=== PATIENT | male | born 1985 | race Caucasian/White ===

== ENCOUNTER → 2019-03-30 12:22 | Outpatient (CLI) | payer BC, SELFPAY ==
[2019-03-30 13:34] LABS: Absolute Lymphocyte Count 1.76 X10^3/uL (0.83-4.51); Absolute Neutrophil Count 2.8 X10^3/uL (2.0-7.7); Basophil# 0.03 X10^3/uL; Basophil% 0.6 % (0-1); Eosinophil# 0.05 X10^3/uL; Hematocrit 47.1 % (40-54); Hemoglobin 15.6 g/dL (13.0-16.5); Lymphocyte # 1.76 X10^3/ul (4.0); Lymphocyte % 33.8 % (19-41); Mean Corp Hgb Conc 33.1 g/dL (32-36); Mean Corpuscular Hgb 29.5 pg (27.0-32.0); Mean Platelet Vol. 8.5 fl (6.2-12.0); Monocyte# 0.54 X10^3/uL; Monocyte% 10.4 % (0-10); NRBC Flagged by Analyzer 0 % (0-5); Neutrophil # 2.82 X10^3/uL (2.7-7.7); Platelet Count 296 K/mm3 (150-450); RBC Distribution Width CV 12.5 % (11.6-14.6); RBC Distribution Width SD 40.7 fl (35.1-43.9); Red Blood Count 5.29 M/mm3 (4.6-6.2); White Blood Count 5.2 K/mm3 (4.4-11.0)
[2019-03-30 13:53] LABS: Prothrombin Time (Protime)PT. 12.7 SECONDS (11.7-14.9)
[2019-03-30 13:54] LABS: Partial Thromboplast Time 30.3 Seconds (24.1-36.2)
[2019-03-30 13:58] LABS: Anion Gap 4 (5-15); BUN 15 mg/dL (7-18); BUN/Creat Ratio 17.9 RATIO (10-20); Chloride 104 mmol/L (98-107); Creatinine, Serum 0.84 mg/dL (0.70-1.30); EST Glomerular Filtration Rate 112 mL/min (>60); Est Glom Filt Rate - Afr Amer 135 mL/min (>60); Glucose 61 mg/dL (74-106); Potassium 3.9 mmol/L (3.5-5.1); Sodium Level 140 mmol/L (136-145)
== END ==
PROVIDERS: Family Provider Family Medicine; PCP Family Medicine; Referring Provider Podiatrist Foot & Ankle Surgery; Visit Provider Podiatrist Foot & Ankle Surgery
DX: Z01.818 Encounter for other preprocedural examination (principal)
CPT/HCPCS: 36415; 80048; 85025; 85610; 85730

== ENCOUNTER → 2019-07-25 13:19 | Outpatient (CLI) | payer BC, SELFPAY ==
--- NOTE | 2019-07-25 14:55 | NEURO ---
NCS and/or EMG Patient Report Ordering Doctor: Amado Mooney DATE OF SERVICE: 07/25/19 Malik Godoy is a 34 year old male who presents for electrodiagnostic testing of the lower limbs. He reports numbness and tingling in the right foot, primarily with flexion. Electrodiagnostic findings: Peroneal motor nerve demonstrates normal distal latency, amplitude and conduction velocity bilaterally. Normal tibial motor response bilaterally. Prolonged right sural latency is noted. Normal peroneal and tibial F waves. Normal H reflex bilaterally. On needle EMG, all muscles tested in the lower limb showed no evidence of denervation with normal motor unit action potentials Electrodiagnostic impression this is an abnormal study in the right lower limb 1. 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 No electrodiagnostic evidence for peripheral polyneuropathy 3. No electrodiagnostic evidence for tarsal tunnel syndrome. If there are any further questions, please do not hesitate to contact me.
== END ==
PROVIDERS: PCP Family Medicine; Referring Provider Podiatrist Foot & Ankle Surgery; Visit Provider Podiatrist Foot & Ankle Surgery
DX: G57.61 Lesion of plantar nerve, right lower limb (principal)
CPT/HCPCS: 95886; 95913

== ENCOUNTER → 2020-03-31 12:23 | Outpatient (CLI) | payer BC, SELFPAY ==
--- NOTE | 2020-03-31 12:32 | EKG12_ITS ---
Test Reason : PREOP Blood Pressure : / mmHG Vent. Rate : 078 BPM Atrial Rate : 078 BPM P-R Int : 132 ms QRS Dur : 088 ms QT Int : 350 ms P-R-T Axes : 021 077 031 degrees QTc Int : 399 ms Normal sinus rhythm Normal ECG Confirmed by ERIC WHITAKER, JUANITA ([id number]), editorial director GLADIS MAGANA ([id number]) on 04/03/2020 10:25:00 AM Referred By: Amado Mooney Confirmed By:KRISTEN REYES MD
--- NOTE | 2020-03-31 12:48 | RAD_ITS ---
STUDY: X-RAY CHEST REASON FOR EXAM: Male, 34 years old. Preoperative exam TECHNIQUE: Frontal and lateral views of the chest COMPARISON: 02/02/14 FINDINGS: The lungs are clear. There are no pleural effusions. There is no pneumothorax. The heart is normal in size. The visualized osseous structures are within normal limits. RAD/Chest PA and Lateral IMPRESSION: No acute thoracic pathology. Electronically Signed: Chris Almeida, at 22:14 EST Tel , Service support ,
[2020-03-31 13:36] LABS: Absolute Neutrophil Count 3.3 X10^3/uL (2.0-7.7); Basophil# 0.03 X10^3/uL; Basophil% 0.6 % (0-1); Eosinophil# 0.06 X10^3/uL; Eosinophils% 1.1 % (0-5); Hematocrit 48.4 % (40-54); Hemoglobin 16.1 g/dL (13.0-16.5); Lymphocyte % 29.6 % (19-41); Mean Corp Hgb Conc 33.3 g/dL (32-36); Mean Corpuscular Volume 90.3 fL (80-94); Mean Platelet Vol. 8.3 fl (6.2-12.0); Monocyte# 0.41 X10^3/uL; Monocyte% 7.6 % (0-10); NRBC Flagged by Analyzer 0 % (0-5); Neutrophil # 3.29 X10^3/uL (2.7-7.7); Neutrophil % 60.9 % (47-70); Platelet Count 291 K/mm3 (150-450); RBC Distribution Width CV 12.5 % (11.6-14.6); RBC Distribution Width SD 40.9 fl (35.1-43.9); Red Blood Count 5.36 M/mm3 (4.6-6.2); White Blood Count 5.4 K/mm3 (4.4-11.0)
[2020-03-31 13:42] LABS: International Normalized Ratio 0.9; Prothrombin Time (Protime)PT. 11.8 SECONDS (11.7-14.9)
[2020-03-31 13:43] LABS: Partial Thromboplast Time 29.1 Seconds (24.1-36.2)
[2020-03-31 14:09] LABS: Hemoglobin A1c 5.2 % (3.8-5.6)
[2020-03-31 14:12] LABS: Anion Gap 7 (5-15); BUN 10 mg/dL (7-18); BUN/Creat Ratio 10.9 RATIO (10-20); Calcium,Total 9.1 mg/dL (8.5-10.1); Chloride 101 mmol/L (98-107); Creatinine, Serum 0.91 mg/dL (0.70-1.30); EST Glomerular Filtration Rate 100 mL/min (>60); Est Glom Filt Rate - Afr Amer 121 mL/min (>60); Glucose 87 mg/dL (74-106); Potassium 3.8 mmol/L (3.5-5.1); Sodium Level 138 mmol/L (136-145)
== END ==
PROVIDERS: PCP Family Medicine; Referring Provider Podiatrist Foot & Ankle Surgery; Visit Provider Podiatrist Foot & Ankle Surgery
DX: Z11.59 Encounter for screening for other viral diseases (principal); Z01.818 Encounter for other preprocedural examination; Z01.810 Encounter for preprocedural cardiovascular examination
CPT/HCPCS: 36415; 71046; 80048; 83036; 85025; 85610; 85730; 87635; 93005; C9803; U0003

== ENCOUNTER → 2021-01-23 16:10 | Outpatient (CLI) | payer BC, SELFPAY ==
--- NOTE | 2021-01-23 16:16 | MRI_ITS ---
HISTORY: ACHILLES TENDON TEAR;LIMB LENGTH DIFFERENCE right foot Achilles pain after surgery. EXAMINATION: MR Ankle W/O Contrast TECHNIQUE: Multiplanar and multisequence MR images of the right ankle. IV Contrast dosage and agent: None COMPARISON: None FINDINGS: SOFT TISSUES: Mild retrocalcaneal bursal fluid signal. No retro-Achilles fluid collection. No subcutaneous fluid collection or air artifact. MUSCLES: Normal bulk and signal. BONE: Talar dome intact. No fracture or marrow edema. No osteochondral lesion. 2 Achilles tendon calcaneal fixation screws are present without surrounding edema. JOINT: Articular cartilage intact. No joint effusion. LIGAMENTS: Anterior and posterior tibiofibular ligament and talofibular ligaments are intact. Superficial and deep fibers deltoid ligament are intact. TENDONS: Anterior extensor tendons are normal in appearance. Medial ankle tendons are normal in appearance. Peroneus brevis partial thickness split tear, reference axial images 16, with mild anterior edema adjacent to the distal fibular tip. There is thickening and mild increased signal within the distal Achilles tendon along the distal 2.3 cm prior to calcaneal insertion MISCELLANEOUS: Plantar fascia intact. Normal fat in the sinus tarsi. MRI/Lower Ext Joint Only (Routine) IMPRESSION: 1. Distal Achilles thickening and increased signal compatible with tendinosis with trace retrocalcaneal bursal edema. Achilles calcaneal fixation screws are present. No evidence of discrete Achilles tendon tear or retraction. 2. Findings consistent with partial thickness peroneus brevis tendon split tear. at 0103 Reported and signed by: Eduardo Miranda MD Electronically Signed: Eduardo Miranda MD at 1:02 EDT Tel , Service support ,
== END ==
PROVIDERS: PCP Family Medicine; Visit Provider Podiatrist
DX: S86.011A Strain of right Achilles tendon, initial encounter (principal); X58.XXXA Exposure to other specified factors, initial encounter; Y93.9 Activity, unspecified; Y92.9 Unspecified place or not applicable; Y99.9 Unspecified external cause status
CPT/HCPCS: 73721

== ENCOUNTER → 2021-02-07 11:20 | Outpatient (CLI) | payer BC, SELFPAY ==
--- NOTE | 2021-02-07 11:31 | RAD_ITS ---
STUDY: BONE LENGTH SCANOGRAM REASON FOR EXAM: Male, 35 years old. LEG LENGTH TECHNIQUE: AP imaging of both lower extremities was obtained. COMPARISON: None. FINDINGS: No significant bone length discrepancy is seen. RAD/Bone Length IMPRESSION: No significant bone length discrepancy is seen. Electronically Signed: Elio Coleman MD at 8:44 EST , Service support ,
== END ==
PROVIDERS: PCP Physician Assistant; Visit Provider Podiatrist
DX: M21.70 Unequal limb length (acquired), unspecified site (principal); S86.011A Strain of right Achilles tendon, initial encounter
CPT/HCPCS: 77073

== ENCOUNTER → 2023-02-22 | Outpatient (CLI) | payer BC, SELFPAY ==
--- NOTE | 2023-02-22 06:38 | MRI_ITS ---
STUDY: MRI LEFT REARFOOT WITHOUT CONTRAST REASON FOR EXAM: Male, 37 years old. Plantar fasciitis with heel spur, left foot. TECHNIQUE: Standardized fat and water weighted pulse sequences were obtained in all 3 orthogonal planes. COMPARISON: None. FINDINGS: Normal subcutis adipose space. Normal posterior tibialis tendon. Normal flexor digitorum longus tendon. Normal flexor hallucis longus tendon. Normal peroneus longus and brevis tendons. Normal tibialis anterior tendon. Normal extensor hallucis longus tendon. Normal extensor digitorum longus tendons. Intact Achilles tendon and teno-osseous insertion. There is a 5 mm enthesopathic subcortical cyst at the posterior calcaneal tuberosity (sagittal STIR series 7 image 11; axial T2 series 4 images 12-13). There is mild plantar fasciitis at the origin of the plantar fascia with mild reactive subcortical marrow edema at the plantar calcaneal tuberosity (sagittal STIR series 7 images 8-9). Normal intrinsic muscles of the rearfoot. Normal distal tibiofibular syndesmotic ligamentous complex. Normal lateral ligamentous complex. Normal subtalar ligaments and sinus tarsi. Normal deltoid ligamentous complex. Normal plantar calcaneonavicular (spring) ligament. Normal tibiotalar articulation. Normal talar dome. Normal subtalar articulations. Normal talonavicular articulation. Normal calcaneocuboid articulation. Normal navicular-cuneiform articulations. MRI/Lower Ext/No Jt/w/o IMPRESSION: Mild plantar fasciitis at the origin of the plantar fascia with mild reactive subcortical marrow edema at the plantar calcaneal tuberosity. Electronically Signed: Ravindra Dugan MD at 9:47 EST ,
== END | disposition home or self-care (01) ==
PROVIDERS: PCP Internal Medicine; Referring Provider Podiatrist; Visit Provider Podiatrist
DX: M72.2 Plantar fascial fibromatosis (principal); M77.32 Calcaneal spur, left foot
CPT/HCPCS: 73718

== ENCOUNTER 2023-04-22 06:03 | Day surgery (SDC) | payer BC, SELFPAY ==
[2023-04-20 08:08] LABS: Absolute Lymphocyte Count 1.71 X10^3/uL (0.83-4.51); Absolute Neutrophil Count 2.2 X10^3/uL (2.0-7.7); Basophil# 0.03 X10^3/uL; Basophil% 0.7 % (0-1); Eosinophil# 0.08 X10^3/uL; Eosinophils% 1.7 % (0-5); Hematocrit 45.1 % (40-54); Hemoglobin 14.9 g/dL (13.0-16.5); Lymphocyte # 1.71 X10^3/ul (0.83-4.51); Lymphocyte % 37.3 % (19-41); Mean Corpuscular Hgb 29.2 pg (27.0-32.0); Mean Corpuscular Volume 88.4 fL (80-94); Mean Platelet Vol. 8.2 fl (6.2-12.0); Monocyte# 0.53 X10^3/uL; Monocyte% 11.6 % (0-10); NRBC Flagged by Analyzer 0 % (0-5); Neutrophil # 2.23 X10^3/uL (2.7-7.7); Neutrophil % 48.7 % (47-70); Platelet Count 305 K/mm3 (150-450); RBC Distribution Width CV 12.5 % (11.6-14.6); RBC Distribution Width SD 40.8 fl (35.1-43.9); White Blood Count 4.6 K/mm3 (4.4-11.0)
[2023-04-20 08:39] LABS: Anion Gap 2 (5-15); BUN 14 mg/dL (7-18); BUN/Creat Ratio 17.6 RATIO (10-20); Calcium,Total 9.6 mg/dL (8.5-10.1); Chloride 107 mmol/L (98-107); EST Glomerular Filtration Rate 116 mL/min (>60); Est Glom Filt Rate - Afr Amer 140 mL/min (>60); Glucose 93 mg/dL (74-106); Potassium 3.8 mmol/L (3.5-5.1); Sodium Level 139 mmol/L (136-145)
--- OUTSIDE RECORDS SUMMARY | 2023-04-22 06:06 | XMS RPT_ITS | CCD ---
Author Name Unknown Address [address] [place] [address] Organization [facility] Care Team Providers Care Elementary Ell Teacher Name Role Phone Jose C MARINN.SAMPLE GRADER, DNP, Dewey Primary Care Provider Suresh WHITAKER, Jermaine Faith Primary Care Provider [phone] Jermaine Nieves MD Primary Care Provider [phone] JERMAINE NIEVES Primary Care Unavailable JERMAINE NIEVES Primary Care Unavailable JERMAINE NIEVES Referring Unavailable JERMAINE NIEVES Primary Care Unavailable JERMAINE NIEVES Attending Unavailable JERMAINE NIEVES Primary Care Unavailable JERMAINE NIEVES Attending Unavailable JERMAINE NIEVES Primary Care Unavailable JERMAINE NIEVES Primary Care Unavailable Allergies Allergy Classification Reported Allergen(s) Allergy Type Date of Onset Reaction(s) Facility (10 sources) Amoxicillin; Translations: [AMOXICILLIN] Drug Allergy 01-14-2018 [facility] Work Phone: Medications Current Medications Medication Drug Class(es) Dates Sig (Normalized) Sig (Original) doxycycline monohydrate 100 mg oral tablet (1 source) Tetracycline-clas s Drug Start: 04-06-2022 End: 04-13-2022 take 1 tablet by mouth twice daily doxycycline monohydrate 100 mg tablet Indications: Bacterial sinusitis Take 1 tablet by mouth twice daily for 7 days. 14 tablet 0 04/06/2022 04/13/2022 Active Completed/Discontinued Medications Medication Drug Class(es) Dates Sig (Normalized) Sig (Original) DAILY MULTIVITAMIN TAB (9 sources) Start: 01-11-2005 DAILY MULTIVITAMIN TAB Indications: Infectious colitis, enteritis, and gastroenteritis Take one(1) tablet daily. 0 01/11/2005 Active Problems Active Problems Problem Classification Problem Date Documented Da te Episodic/Chronic Disorders of lipid metabolism (11 sources) Hyperlipidemia; Translations: [Hyperlipidemia, unspecified] Onset: 09-30-2010 09-30-2010 Chronic Headache; including migraine (9 sources) Migraine with aura; Translations: [Migraine with aura, not intractable, without status migrainosus] Onset: 07-17-2021 Chronic Hemorrhoids (1 source) Thrombosed hemorrhoids; Translations: [Perianal venous thrombosis] Episodic Other nutritional; endocrine; and metabolic disorders (9 sources) Cholesterol level - finding; Translations: [Lipoprotein deficiency] Onset: 09-30-2010 09-30-2010 Chronic Other nutritional; endocrine; and metabolic disorders (1 source) Body mass index 25-29 - overweight; Translations: [Overweight] Episodic Other screening for suspected conditions (not mental disorders or infectious disease) (4 sources) Patient encounter status; Translations: [Encounter for screening for lipoid disorders] Episodic Other skin disorders (10 sources) Male pattern alopecia; Translations: [Androgenic alopecia, unspecified] Onset: 09-30-2010 Episodic Other upper respiratory infections (1 source) Bacterial sinusitis; Translations: [Chronic sinusitis, unspecified] Chronic Past or Other Problems Problem Classification Problem Date Documented Da te Episodic/Chronic Immunizations and screening for infectious disease (3 sources) Vaccination needed; Translations: [Encounter for immunization] Onset: 07-22-2022 Episodic Other skin disorders (1 source) Androgenic alopecia, unspecified; Translations: [Male pattern baldness] Onset: 11-27-2021 Episodic Results Test Name Value Interpretation Reference Range Facil ity Vital Signs Date Time Vital Sign Value Performing Clinician Faci lity 07-22-2022 17:41-0400 Diastolic blood pressure 82 mm[Hg] Jermaine Nieves MD Work Phone: [facility] 07-22-2022 17:41-0400 Systolic blood pressure 124 mm[Hg] Jermaine Nieves MD Work Phone: [facility] 07-22-2022 17:11-0400 Body height 172.7 cm Jermaine Nieves MD Work Phone: [facility] 07-22-2022 17:11-0400 Body weight 73.94 kg Jermaine Nieves MD Work Phone: [facility] 07-22-2022 17:11-0400 Heart rate 64 /min Jermaine Nieves MD Work Phone: [facility] 07-22-2022 17:11-0400 Respiratory rate 12 /min Jermaine Nieves MD Work Phone: [facility] 07-22-2022 17:11-0400 SaO2% (BldA) [Mass fraction] 99 % Jermaine Nieves MD Work Phone: [facility] 04-06-2022 12:39-0500 Body temperature 98.2 [degF] Chauncey Jack HOME IMPROVEMENT ADVISOR.SAMPLE GRADER Work Phone: [facility] 04-06-2022 12:39-0500 Body weight 79.2 kg Chauncey Jack HOME IMPROVEMENT ADVISOR.SAMPLE GRADER Work Phone: [facility] 04-06-2022 12:39-0500 Diastolic blood pressure 76 mm[Hg] Chauncey Jack HOME IMPROVEMENT ADVISOR.SAMPLE GRADER Work Phone: [facility] 04-06-2022 12:39-0500 Heart rate 84 /min Chauncey Jack HOME IMPROVEMENT ADVISOR.SAMPLE GRADER Work Phone: [facility] 04-06-2022 12:39-0500 Respiratory rate 16 /min Chauncey Jack HOME IMPROVEMENT ADVISOR.SAMPLE GRADER Work Phone: [facility] 04-06-2022 12:39-0500 SaO2% (BldA) [Mass fraction] 99 % Chauncey Jack HOME IMPROVEMENT ADVISOR.SAMPLE GRADER Work Phone: [facility] 04-06-2022 12:39-0500 Systolic blood pressure 124 mm[Hg] Chauncey Jack HOME IMPROVEMENT ADVISOR.SAMPLE GRADER Work Phone: [facility] 01-15-2022 08:38-0400 Body weight 79.38 kg Kasandra Older HOME IMPROVEMENT ADVISOR.SAMPLE GRADER Work Phone: [facility] 01-15-2022 08:38-0400 Diastolic blood pressure 88 mm[Hg] Kasandra Older HOME IMPROVEMENT ADVISOR.SAMPLE GRADER Work Phone: [facility] 01-15-2022 08:38-0400 Heart rate 84 /min Kasandra Older HOME IMPROVEMENT ADVISOR.SAMPLE GRADER Work Phone: [facility] 01-15-2022 08:38-0400 Respiratory rate 16 /min Kasandra Older HOME IMPROVEMENT ADVISOR.SAMPLE GRADER Work Phone: [facility] 01-15-2022 08:38-0400 Systolic blood pressure 132 mm[Hg] Kasandra Older HOME IMPROVEMENT ADVISOR.SAMPLE GRADER Work Phone: [facility] 07-17-2021 12:54-0400 Body height 172.7 cm Dewey Woodall APRN.SAMPLE GRADER, DNP Work Phone: [facility] 07-17-2021 12:54-0400 Body weight 78.93 kg Dewey Woodall APRN.KODAK, DNP Work Phone: [facility] 07-17-2021 12:54-0400 Diastolic blood pressure 84 mm[Hg] Dewey Woodall HOME IMPROVEMENT ADVISOR.SAMPLE GRADER, DNP Work Phone: [facility] 07-17-2021 12:54-0400 Heart rate 86 /min Dewey Woodall APRN.SAMPLE GRADER, DNP Work Phone: [facility] 07-17-2021 12:54-0400 Respiratory rate 14 /min Dewey Woodall APRN.SAMPLE GRADER, DNP Work Phone: [facility] 07-17-2021 12:54-0400 SaO2% (BldA) [Mass fraction] 98 % Dewey Woodall APRN.SAMPLE GRADER, DNP Work Phone: [facility] 07-17-2021 12:54-0400 Systolic blood pressure 122 mm[Hg] Dewey Woodall APRN.SAMPLE GRADER, DNP Work Phone: [facility] 07-08-2021 13:55-0400 Body height 172.7 cm Justyna Hayden PA-C Work Phone: [facility] 07-08-2021 13:55-0400 Body weight 78.93 kg Justyna Hayden PA-C Work Phone: [facility] 07-08-2021 13:55-0400 Diastolic blood pressure 87 mm[Hg] Justyna Hayden PA-C Work Phone: [facility] 07-08-2021 13:55-0400 Heart rate 74 /min Justyna Hayden PA-C Work Phone: [facility] 07-08-2021 13:55-0400 Systolic blood pressure 127 mm[Hg] Justyna Hayden PA-C Work Phone: [facility] Encounters Encounter Date Encounter Type Care Provider Facility Start: 04-05-2023 End: 04-05-2023 ambulatory JERMAINE NIEVES Facility:[facility] Start: 03-30-2023 End: 03-30-2023 ambulatory JERMAINE NIEVES Facility:[facility] Start: 01-26-2023 Refill Kasandra Zendejas APRN, .CNP Work Phone: [facility] Procedures Date Procedure Procedure Detail Performing Clinician Start: 07-27-2022 Lipid 1996 panel - S camila or Plasma Mi Nurse Work Phone: Start: 07-17-2021 Adult depression screening assessment Dewey Woodall APRN.CNP, DNP Work Phone: Start: 01-16-2018 Adult depression screening assessment Justyna Hayden PA-C Work Phone: Plan of Treatment Date Care Activity Detail Author Start: 07-28-2027 Lipid 1996 panel - Serum or Plasma Lipid Screening [facility] Start: 09-06-2026 Urine microalbumin profile [facility] Start: 07-22-2026 LIPID SCREEN LIPID SCREEN [facility] Start: 12-03-2022 Covid-19 Vaccine ( season) Covid-19 Vaccine ( season) [facility] Start: 12-03-2022 Influenza vaccination Influenza Vaccine (#1) [facility] Start: 08-19-2022 HEPATITIS B (2 of 3 - 19+ 3-dose series) HEPATITIS B (2 of 3 - 19+ 3-dose series) [facility] Start: 07-23-2022 End: 09-22-2022 Comprehensive metabolic 2000 panel - Serum or Plasma COMP METABOLIC PANEL Lab Routine Routine general medical examination at health care facility Expected: 07/23/2022, Expires: 09/22/2022 [facility] Work Phone: Immunizations Immunization Date Immunization Notes Care Provider [facility] 01-24-2023 hepatitis B vaccine, adult dosage Mi Nurse Work Phone: [facility] Work Phone: 08-23-2022 hepatitis B vaccine, adult dosage Mi Nurse Work Phone: [facility] Work Phone: 07-22-2022 hepatitis B vaccine, adult dosage Jermaine Nieves MD Work Phone: [facility] Work Phone: 07-22-2022 hepatitis B vaccine, unspecified formulation Jermaine Nieves MD Work Phone: [facility] 01-13-2022 influenza, injectabl e, quadrivalent, contains preservative Kasandra Older HOME IMPROVEMENT ADVISOR.SAMPLE GRADER Work Phone: [facility] 01-13-2022 influenza virus vaccine, unspecified formulation Tx Nurse Work Phone: [facility] 02-28-2021 COVID-19 original vaccine, full dose, monovalent (MODERNA) Jermaine Nieves MD Work Phone: [facility] Work Phone: 08-07-2020 COVID-19 original vaccine, full dose, monovalent (MODERNA) Jermaine Nieves MD Work Phone: [facility] Work Phone: 07-10-2020 COVID-19 original vaccine, full dose, monovalent (MODERNA) Jermaine Nieves MD Work Phone: [facility] Work Phone: 12-19-2018 influenza, injectabl e, quadrivalent, preservative free Jermaine Nieves MD Work Phone: [facility] Work Phone: 01-28-2018 influenza, injectabl e, quadrivalent, preservative free Jermaine Nieves MD Work Phone: [facility] Work Phone: 01-28-2018 influenza, seasonal, injectable Justyna Jackelyn PA-C Work Phone: [facility] 09-06-2016 tetanus toxoid, redu lucy diphtheria toxoid, and acellular pertussis vaccine, adsorbed Justyna Jackelyn PA-C Work Phone: [facility] 02-02-2014 tetanus and diphther ia toxoids, adsorbed, preservative free, for adult use (2 Lf of tetanus toxoid and 2 Lf of diphtheria toxoid) Justyna Jackelyn PA-C Work Phone: [facility] Work Phone: 02-18-2007 influenza virus vaccine, unspecified formulation Justyna Fan TV PA-C Work Phone: [facility] Work Phone: 02-05-2005 influenza virus vaccine, unspecified formulation Justyna Jackelyn PA-C Work Phone: [facility] Work Phone: 10-01-2003 diphtheria, tetanus toxoids and acellular pertussis vaccine Justyna Jackelyn PA-C Work Phone: [facility] Payers Date Payer Category Payer Unknown [id number] 2021 Unknown [id number] 2018 Unknown [employer] PPO OOS [id number] 2018-Present [phone] [id number] [place] [address] PPO [id number] Social History Date Type Detail Facility Start: 08-30-2012 End: 01-15-2022 Tobacco smoking status NMIS Never smoked tobacco [facility] Start: 07-08-2021 End: 07-23-2022 Alcohol intake Current drinker of alcohol (finding) [facility] Start: 07-07-2021 History SDOH Alcohol Comment occasional [facility] Start: 1985 Sex Assigned At Not on file [facility] Start: 06-27-2021 End: 11-26-2021 Exposure to SARS-CoV-2 (event) Not sure [facility] Start: 07-17-2021 End: 08-23-2022 Alcohol intake [facility] Start: 07-14-2021 History SDOH Alcohol Frequency 4 [facility] Start: 07-14-2021 End: 07-19-2022 History SDOH Alcohol Std Drinks 1 [facility] Start: 07-14-2021 End: 07-19-2022 History SDOH Social Connections Phone 3 [facility] Start: 07-14-2021 End: 07-19-2022 History SDOH Social Connections Get Together 2 [facility] Start: 07-14-2021 History SDOH Social Connections Meetings 98 [facility] Start: 07-14-2021 End: 07-19-2022 History SDOH Financial 5 [facility] Start: 1985 Sex Assigned At Male [facility] Work Phone: Start: 08-30-2012 End: 01-15-2022 Tobacco use and exposure Smokeless tobacco non-user [facility] Start: 07-18-2022 End: 08-23-2022 Social connection and isolation panel [facility] Do you belong to any clubs or organizations such as mu-ism groups, unions, fraternal or athletic groups, or school groups? Yes [facility] Are you now , , , , never or living with a partner? [facility] How often to you hav e a drink containing alcohol? 2-4 times a month [facility] How many standard dr inks containing alcohol do you have on a typical day? 1 or 2 [facility] How often do you hav e 6 or more drinks on 1 occasion? Never [facility] How hard is it for y ou to pay for the very basics like food, housing, medical care, and heating Not hard at all [facility] Do you feel stress - tense, restless, nervous, or anxious, or unable to sleep at night because your mind is troubled all the time - these days [OSQ] Not at all [facility] (I/We) worried wheth er (my/our) food would run out before (I/we) got money to buy more. Never true [facility] In the past 12 month s, was there a time when you were not able to pay the mortgage or rent on time? No [facility] Start: 07-17-2021 Gender identity Identifies as male gender (finding) [facility] Work Phone: Start: 07-17-2021 Sexual orientation Heterosexual (finding) [facility] Work Phone: Clinical Notes 07-08-2021 to 04-05-2023 Telephone Encounter - Francesca Martínez HARNESS INSPECTOR - 01/26/2023 7:47 AM EDTSimi Daigle HARNESS INSPECTOR - 01/24/2023 8:59 AM EDTPatient InstructionsJermaine Nieves MD - 07/22/2022 5:20 PM EDTPatient Instructions Note Date & Type Note Facility 04-05-2023 Note HNO ID: [id number] Author: Daphnie Sánchez APRN.SAMPLE GRADER Service: ? Author Type: Nurse Practitioner Type: Progress Notes Filed: 04/05/2023 12:45 PM Note Text: Subjective Cough Associated symptoms include sore throat. Pertinent negatives include no chest pain, no chills, no ear pain, no headaches, no myalgias, no shortness of breath and no wheezing. HPI Malik Godoy is a 37 year old male who presents today for CC of cough, sore throat, and chest congestion for 3 days. He has used tylenol cold and sinus with short term relief. His children positive strep last week. Negative home covid test BP 132/84 Pulse 83 Temp 36.6 ?C (97.8 ?F) (Tympanic) Resp 16 Wt 77 kg (169 lb 12.8 oz) SpO2 100% BMI 25.82 kg/m? Social History Tobacco Use Smoking status: Never Smokeless tobacco: Never Vaping Use Vaping Use: Never used Substance Use Topics Alcohol use: Yes Alcohol/week: 1.0 standard drink of alcohol Types: 1 Cans of Beer (12oz) per week Comment: occasional Drug use: No PAST MEDICAL HISTORY Diagnosis Date Acquired Josse's deformity of right heel 2020 Hyperlipidemia LDL goal < 100 09/30/2010 Kidney stones 2-3 x in 15 years. 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 HENT: Positive for congestion, sinus pain and sore throat. Negative for ear pain. Respiratory: Positive for cough. Negative for sputum production, shortness of breath and wheezing. Cardiovascular: Negative for chest pain. Musculoskeletal: Negative for myalgias. Neurological: Negative for headaches. Objective Physical Exam Vitals and nursing note reviewed. Constitutional: Appearance: He is not toxic-appearing. HENT: Head: Normocephalic and atraumatic. Right Ear: Tympanic membrane, ear canal and external ear normal. Left Ear: Tympanic membrane, ear canal and external ear normal. Nose: No mucosal edema, congestion or rhinorrhea. Right Sinus: No maxillary sinus tenderness or frontal sinus tenderness. Left Sinus: No maxillary sinus tenderness or frontal sinus tenderness. Mouth/Throat: Pharynx: Uvula midline. No oropharyngeal exudate or posterior oropharyngeal erythema. Tonsils: No tonsillar abscesses. Cardiovascular: Rate and Rhythm: Normal rate and regular rhythm. Heart sounds: Normal heart sounds. Pulmonary: Effort: Pulmonary effort is normal. Breath sounds: Normal breath sounds. No decreased breath sounds, wheezing, rhonchi or rales. Lymphadenopathy: Head: Right side of head: No submental, submandibular, tonsillar or preauricular adenopathy. Left side of head: No submental, submandibular, tonsillar or preauricular adenopathy. Cervical: No cervical adenopathy. Right cervical: No superficial cervical adenopathy. Left cervical: No superficial cervical adenopathy. Skin: General: Skin is warm and dry. Neurological: Mental Status: He is alert and oriented to person, place, and time. Psychiatric: Mood and Affect: Affect normal. ASSESSMENT/PLAN: 1. URI with cough and congestion - ICD9: 465.9, ICD10: J06.9 (primary diagnosis) - Discussed viral etiology and rationale for treatment. - Symptomatic treatment with prn analgesia - Supportive care with fluids and rest Tesslon rajani prn Mucinex DM Declined covid testing 2. Sore throat - ICD9: 462, ICD10: J02.9 - suspect viral - Group A strep molecular testing negative - Discussed supportive care treatment with fluids, rest and analgesia. - The patient may also use warm salt water gargles, throat lozenges and/or OTC throat spray as needed. - The patient should follow up in one week if symptoms persist or worsen - Call back if drooling, increased temperature, symptoms of dehydration and/or still sick in one week Diagnosis and treatment plan were discussed and questions were answered to the patient's satisfaction. Pt acknowledged understanding of concepts and follow up plan. Specific signs and symptoms that would indicate the need for higher level of care were discussed in detail warranting prompt ER evaluation. Daphnie Sánchez APRN.[facility] 03-30-2023 Note HNO ID: [id number] Author: Jermaine Nieves MD Service: ? Author Type: Physician Type: Progress Notes Filed: 03/30/2023 9:52 AM Note Text: This note was created using Azendoo. Subjective Consultation requested by Dr. Head for an opinion regarding preoperative examination. My final recommendations will be communicated back to the requesting physician by way of shared Medical record or letter to requesting physician via US mail. Malik Godoy is a 37 year old male scheduled April 22, 2023 for left foot plantar fasciectomy, resection of infracalcaneal spur under general anesthesia. He was in good health, and had no history of bleeding tendencies or adverse effects from general anesthesia. He also mentioned symptoms of finger pallor and numbness during cold weather, resolving with warming for a few haider. Another concern brought up was upcoming travel for work; to [facility] 04/11-04/16 and [facility] 05/23-05/28. He was not aware of any vaccination requirements. [place] urban areas, and was aware about measures to avoid food borne illness. Review of Systems Constitutional: Negative for fatigue, fever and unexpected weight change. HENT: Negative. Respiratory: Negative for cough and shortness of breath. Cardiovascular: Negative for chest pain, palpitations and leg swelling. Gastrointestinal: Negative for diarrhea, nausea and vomiting. Genitourinary: Negative for dysuria. Skin: Negative for wound. Neurological: Negative for dizziness and headaches. Hematological: Does not bruise/bleed easily. PAST MEDICAL HISTORY Diagnosis Date Acquired Josse's deformity of right heel 2020 Hyperlipidemia LDL goal < 100 09/30/2010 Kidney stones 2-3 x in 15 years. 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 Migraine with aura, not intractable, without status migrainosus 07/17/2021 PAST SURGICAL HISTORY Procedure Laterality Date PAST SURGICAL HISTORY OF Right 2021 x3 achilles surgies for bone spur, Right RPR 1ST INGUN HRNA AGE 5 YRS/> REDUCIBLE 1990 Social History Tobacco Use Smoking status: Never Smokeless tobacco: Never Vaping Use Vaping Use: Never used Substance Use Topics Alcohol use: Yes Alcohol/week: 1.0 standard drink of alcohol Types: 1 Cans of Beer (12oz) per week Comment: occasional Drug use: No ALLERGIES Allergen Reactions Amoxicillin Rash Current Outpatient Medications Medication Sig minoxidil (LONITEN) 2.5 mg tablet Take 1 tablet by mouth once daily. fexofenadine HCl (MUCINEX ALLERGY ORAL) Take by mouth. fluticasone (FLONASE) 50 mcg/actuation nasal spray Use 2 Sprays in each nostril once daily. Rinse mouth after use. fexofenadine/pseudoephedrine (JYOTI-D 24 HOUR ORAL) Take by mouth. DAILY MULTIVITAMIN TAB Take one(1) tablet daily. No current facility-administered medications for this visit. Objective BP 112/82 Pulse 68 Resp 16 Wt 76.9 kg (169 lb 8 oz) SpO2 97% BMI 25.77 kg/m? Physical Exam Constitutional: Appearance: Normal appearance. Eyes: Conjunctiva/sclera: Conjunctivae normal. Cardiovascular: Rate and Rhythm: Normal rate and regular rhythm. Pulses: Normal pulses. Heart sounds: No murmur heard. No gallop. Pulmonary: Breath sounds: Normal breath sounds. Abdominal: General: There is no distension. Tenderness: There is no abdominal tenderness. Musculoskeletal: Right lower leg: No edema. Left lower leg: No edema. Neurological: General: No focal deficit present. Mental Status: He is alert. Assessment and Plan 1. Preoperative examination - ICD9: V72.84, ICD10: Z01.818 (primary diagnosis) Low risk. Proceed with surgery. 2. Travel advice encounter - ICD9: V65.49, ICD10: Z71.84 We reviewed his immunizations. CDC guidelines reviewed. Precautions for food borne illness reviewed. 3. History of Raynaud's syndrome - ICD9: V12.59, ICD10: Z86.79 Avoidance of triggers only. Jermaine Nieves MD [facility] 01-26-2023 Miscellaneous Notes Patient has been identified by name and date of : Yes, Provider Dr. Nieves Date 04/28/22 Time 7:47 am Patient phones for refill(s): Requested Prescriptions Pending Prescriptions Disp Refills minoxidil (LONITEN) 2.5 mg tablet 90 tablet 3 Sig: Take 1 tablet by mouth once daily. Date of last office visit in primary care: 07/22/2022 Date of next office visit in primary care: Visit date not found Last 2 Encounter Wt Readings: Date: Wt: 07/22/2022 73.9 kg (163 lb) 04/06/2022 79.2 kg (174 lb 9.6 oz) Previous labs/tests for medication: Not applicable Thank you. Francesca Martínez LPN. documented in this encounter [facility] 01-24-2023 Note HNO ID: [id number] Author: Simi Daigle LPN Service: ? Author Type: ? Type: Progress Notes Filed: 01/24/2023 8:59 AM Note Text: Patient presents for Hepatitis B vaccine. Denies any problems at this time. Tolerated injection well. Simi Daigle LPN [facility] 01-24-2023 History of Presen t illness Narrative Patient presents for Hepatitis B vaccine. Denies any problems at this time. Tolerated injection well. Simi Daigle LPN documented in this encounter [facility] 08-23-2022 Note HNO ID: [id number] Author: Simi Daigle LPN Service: ? Author Type: ? Type: Progress Notes Filed: 08/23/2022 9:02 AM Note Text: Patient presents for Hepatitis B vaccine. Denies any problems at this time. Tolerated injection well. Simi Daigle ROMIE [facility] 07-22-2022 Note HNO ID: [id number] Author: Jermaine Nieves MD Service: ? Author Type: Physician Type: Progress Notes Filed: 07/23/2022 9:18 AM Note Text: This note was created using NoteWriter. Subjective Patient presents with: Physical Malik Godoy is a 37 year old male. He was doing well in general. He regularly ran, but had issues with his right heel requiring surgeries. He was starting to run again after a hiatus. His alopecia was stable on oral medication. He had no side effects. Review of Systems Constitutional: Negative for activity change, fatigue and unexpected weight change. HENT: Negative. Eyes: Negative. Respiratory: Negative for cough, chest tightness and shortness of breath. Cardiovascular: Negative for chest pain, palpitations and leg swelling. Gastrointestinal: Negative for abdominal pain, constipation and diarrhea. Genitourinary: Negative for difficulty urinating and dysuria. Musculoskeletal: Negative for arthralgias. Neurological: Negative for dizziness and headaches. Psychiatric/Behavioral: Negative. PAST MEDICAL HISTORY Diagnosis Date Acquired Josse's deformity of right heel 2020 Hyperlipidemia LDL goal < 100 09/30/2010 Kidney stones 2-3 x in 15 years. 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 Migraine with aura, not intractable, without status migrainosus 07/17/2021 PAST SURGICAL HISTORY Procedure Laterality Date PAST SURGICAL HISTORY OF Right 2021 x3 achilles surgies for bone spur, Right RPR 1ST INGUN HRNA AGE 5 YRS/> REDUCIBLE 1990 FAMILY HISTORY Problem Relation Age of Onset No Known Problems Mother Hypertension Father No Known Problems Sister Arthritis Maternal Grandmother Hearing Loss Maternal Grandmother Hearing Loss Maternal Grandfather Prostate Cancer Maternal Grandfather Stroke Maternal Grandfather Arthritis Paternal Grandmother Hearing Loss Paternal Grandmother Cancer Paternal Grandfather PANCREATIC Hearing Loss Paternal Grandfather Diabetes Maternal Aunt Cancer Paternal Aunt OVARIAN No Known Problems Son No Known Problems Daughter Social History Tobacco Use Smoking status: Never Smokeless tobacco: Never Vaping Use Vaping Use: Never used Substance Use Topics Alcohol use: Yes Alcohol/week: 1.0 standard drink Types: 1 Cans of Beer (12oz) per week Comment: occasional Drug use: No Immunization History Administered Date(s) Administered COVID-19 original vaccine, full dose, monovalent (MODERNA) 07/10/2020 08/07/2020 02/28/2021 COVID-19 vaccine, age 12+ yr, bivalent (MODERNA) 12/10/2021 TD Adult 02/02/2014 diphtheria tetanus pertussis (DTaP) vaccine, pediatric (INFANRIX) 10/01/2003 hepatitis B (HepB) vaccine, 3-dose series, age 20+ yr (ENGERIX-B, RECOMBIVAX HB) 07/22/2022 influenza (IIV3) vaccine, age 3+ yr, trivalent (AFLURIA, FLULAVAL, FLUVIRIN, FLUZONE) 01/28/2018 influenza (IIV4) vaccine, age 6 mo - 64 yr, quadrivalent (AFLURIA, FLULAVAL, FLUZONE) 01/13/2022 influenza (IIV4) vaccine, age 6 mo - 64 yr, quadrivalent, PF (AFLURIA, FLUARIX, FLULAVAL, FLUZONE) 01/28/2018 12/19/2018 influenza vaccine, unspecified formulation 02/05/2005 02/18/2007 tetanus diphtheria pertussis (Tdap) vaccine, age 7+ yr (ADACEL, BOOSTRIX) 09/06/2016 ALLERGIES Allergen Reactions Amoxicillin Rash Current Outpatient Medications Medication Sig fexofenadine HCl (MUCINEX ALLERGY ORAL) Take by mouth. fluticasone (FLONASE) 50 mcg/actuation nasal spray Use 2 Sprays in each nostril once daily. Rinse mouth after use. minoxidil (LONITEN) 2.5 mg tablet Take 1 tablet by mouth once daily. fexofenadine/pseudoephedrine (JYOTI-D 24 HOUR ORAL) Take by mouth. DAILY MULTIVITAMIN TAB Take one(1) tablet daily. No current facility-administered medications for this visit. Objective BP 124/82 (BP Site: Left Arm, BP Position: Sitting) Pulse 64 Resp 12 Ht 172.7 cm (5' 8 ) Wt 73.9 kg (163 lb) SpO2 99% BMI 24.78 kg/m? Physical Exam Constitutional: General: He is not in acute distress. HENT: Head: Normocephalic. Comments: Hair thinner on top than on the sides of the head. No patchy alopecia. Eyes: Extraocular Movements: Extraocular movements intact. Conjunctiva/sclera: Conjunctivae normal. Cardiovascular: Rate and Rhythm: Normal rate and regular rhythm. Heart sounds: No murmur heard. No gallop. Pulmonary: Effort: Pulmonary effort is normal. Breath sounds: Normal breath sounds. Abdominal: Palpations: Abdomen is soft. Tenderness: There is no abdominal tenderness. Musculoskeletal: General: Normal range of motion. Cervical back: Neck supple. Right lower leg: No edema. Left lower leg: No edema. Lymphadenopathy: Cervical: No cervical adenopathy. Skin: General: Skin is warm and dry. Findings: No rash. Neurological: Mental Status: He is alert. Gait: Gait normal. Psychiatric: Mood and Affect: Mood normal. Assessment and Plan 1. Routine general medic (more content not included)... [facility] 07-22-2022 Instructions Jermaine Nieves MD - 07/22/2022 5:42 PM EDT Fasting blood work any time soon. Hepatitis B series. documented in this encounter [facility] 07-22-2022 History of Presen t illness Narrative This note was created using Azendoo. Subjective Patient presents with: Physical Malik Godoy is a 37 year old male. He was doing well in general. He regularly ran, but had issues with his right heel requiring surgeries. He was starting to run again after a hiatus. His alopecia was stable on oral medication. He had no side effects. Review of Systems Constitutional: Negative for activity change, fatigue and unexpected weight change. HENT: Negative. Eyes: Negative. Respiratory: Negative for cough, chest tightness and shortness of breath. Cardiovascular: Negative for chest pain, palpitations and leg swelling. Gastrointestinal: Negative for abdominal pain, constipation and diarrhea. Genitourinary: Negative for difficulty urinating and dysuria. Musculoskeletal: Negative for arthralgias. Neurological: Negative for dizziness and headaches. Psychiatric/Behavioral: Negative. PAST MEDICAL HISTORY Diagnosis Date Acquired Josse's deformity of right heel 2021 Hyperlipidemia LDL goal < 100 09/30/2010 Kidney stones 2-3 x in 15 years. 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 Migraine with aura, not intractable, without status migrainosus 07/17/2021 PAST SURGICAL HISTORY Procedure Laterality Date PAST SURGICAL HISTORY OF Right 2021 x3 achilles surgies for bone spur, Right RPR 1ST INGUN HRNA AGE 5 YRS/> REDUCIBLE 1990 FAMILY HISTORY Problem Relation Age of Onset No Known Problems Mother Hypertension Father No Known Problems Sister Arthritis Maternal Grandmother Hearing Loss Maternal Grandmother Hearing Loss Maternal Grandfather Prostate Cancer Maternal Grandfather Stroke Maternal Grandfather Arthritis Paternal Grandmother Hearing Loss Paternal Grandmother Cancer Paternal Grandfather PANCREATIC Hearing Loss Paternal Grandfather Diabetes Maternal Aunt Cancer Paternal Aunt OVARIAN No Known Problems Son No Known Problems Daughter Social History Tobacco Use Smoking status: Never Smokeless tobacco: Never Vaping Use Vaping Use: Never used Substance Use Topics Alcohol use: Yes Alcohol/week: 1.0 standard drink Types: 1 Cans of Beer (12oz) per week Comment: occasional Drug use: No Immunization History Administered Date(s) Administered COVID-19 original vaccine, full dose, monovalent (MODERNA) 07/10/2020 08/07/2020 02/28/2021 COVID-19 vaccine, age 12+ yr, bivalent (MODERNA) 12/10/2021 TD Adult 02/02/2014 diphtheria tetanus pertussis (DTaP) vaccine, pediatric (INFANRIX) 10/01/2003 hepatitis B (HepB) vaccine, 3-dose series, age 20+ yr (ENGERIX-B, RECOMBIVAX HB) 07/22/2022 influenza (IIV3) vaccine, age 3+ yr, trivalent (AFLURIA, FLULAVAL, FLUVIRIN, FLUZONE) 01/28/2018 influenza (IIV4) vaccine, age 6 mo - 64 yr, quadrivalent (AFLURIA, FLULAVAL, FLUZONE) 01/13/2022 influenza (IIV4) vaccine, age 6 mo - 64 yr, quadrivalent, PF (AFLURIA, FLUARIX, FLULAVAL, FLUZONE) 01/28/2018 12/19/2018 influenza vaccine, unspecified formulation 02/05/2005 02/18/2007 tetanus diphtheria pertussis (Tdap) vaccine, age 7+ yr (ADACEL, BOOSTRIX) 09/06/2016 ALLERGIES Allergen Reactions Amoxicillin Rash Current Outpatient Medications Medication Sig fexofenadine HCl (MUCINEX ALLERGY ORAL) Take by mouth. fluticasone (FLONASE) 50 mcg/actuation nasal spray Use 2 Sprays in each nostril once daily. Rinse mouth after use. minoxidil (LONITEN) 2.5 mg tablet Take 1 tablet by mouth once daily. fexofenadine/pseudoephedrine (JYOTI-D 24 HOUR ORAL) Take by mouth. DAILY MULTIVITAMIN TAB Take one(1) tablet daily. No current facility-administered medications for this visit. Objective BP 124/82 (BP Site: Left Arm, BP Position: Sitting) Pulse 64 Resp 12 Ht 172.7 cm (5' 8 ) Wt 73.9 kg (163 lb) SpO2 99% BMI 24.78 kg/m Physical Exam Constitutional: General: He is not in acute distress. HENT: Head: Normocephalic. Comments: Hair thinner on top than on the sides of the head. No patchy alopecia. Eyes: Extraocular Movements: Extraocular movements intact. Conjunctiva/sclera: Conjunctivae normal. Cardiovascular: Rate and Rhythm: Normal rate and regular rhythm. Heart sounds: No murmur heard. No gallop. Pulmonary: Effort: Pulmonary effort is normal. Breath sounds: Normal breath sounds. Abdominal: Palpations: Abdomen is soft. Tenderness: There is no abdominal tenderness. Musculoskeletal: General: Normal range of motion. Cervical back: Neck supple. Right lower leg: No edema. Left lower leg: No edema. Lymphadenopathy: Cervical: No cervical adenopathy. Skin: General: Skin is warm and dry. Findings: No rash. Neurological: Mental Status: He is alert. Gait: Gait normal. Psychiatric: Mood and Affect: Mood normal. Assessment and Plan 1. Routine general medical examination at health care facility - ICD9: V70.0, ICD10: Z00.00 (primary diagnosis) - Counseled on healthy diet and regular exercise - Depression screening tool completed and reviewed with patient. Based on score and interview, patient is not at risk for depression and recommended no further intervention at this time. - Patient was counseled [id number] by myself (the billing provider) for the following immunizations and vaccine components, including side effects: Hep B Vaccine. Patient consents for immunization and understands risks and benefits. A VIS sheet on each immunization was given to the patient. - COMP METABOLIC PANEL - LIPID PANEL BASIC 2. Male pattern baldness - ICD9: 704.09, ICD10: L64.9 Stable on oral medication. 3. Hyperlipidemia with target low density lipoprotein (LDL) cholesterol less than 100 mg/dL - ICD9: 272.4, ICD10: E78.5 - to be determined upon return of lab results - Encouraged following a low carbohydrate, healthy oil intake diet. 4. Need for vaccination - ICD9: V05.9, ICD10: Z23 - HEP B VACCINE, 3-DOSE, AGE 20+ YR (ENGERIX-B, RECOMBIVAX HB) Jermaine Nieves MD documented in this encounter [facility] 04-06-2022 History of Presen t illness Narrative Subjective HPI HPI Malik Godoy is a 36 year old male who presents today for CC of sinus pressure, drainage, cough, ear pain. This started 12 days ago. Has tried otc medication for relief. Symptoms are worsened by nothing. Risk factors hx of sinus infections. .Patient presents with: Ear Problem: Pt reported intermittent nasal congestion, cough bilateral ear pain rated 4. PAST MEDICAL HISTORY Diagnosis Date Hyperlipidemia LDL goal < 100 09/30/2010 Kidney stones 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 Migraine with aura, not intractable, without status migrainosus 07/17/2021 PAST SURGICAL HISTORY Procedure Laterality Date PAST SURGICAL HISTORY OF Right x3 achilles surgies for bone spur RPR 1ST INGUN HRNA AGE 5 YRS/> REDUCIBLE ALLERGIES Amoxicillin MEDICATIONS fexofenadine HCl (MUCINEX ALLERGY ORAL) Take by mouth. minoxidil (LONITEN) 2.5 mg tablet Take 1 tablet by mouth once daily. fexofenadine/pseudoephedrine (JYOTI-D 24 HOUR ORAL) Take by mouth. DAILY MULTIVITAMIN TAB Take one(1) tablet daily. doxycycline monohydrate 100 mg tablet Take 1 tablet by mouth twice daily for 7 days. fluticasone (FLONASE) 50 mcg/actuation nasal spray Use 2 Sprays in each nostril once daily. Rinse mouth after use. FAMILY HISTORY Problem Relation Age of Onset No Known Problems Mother Hypertension Father No Known Problems Sister Arthritis Maternal Grandmother Hearing Loss Maternal Grandmother Hearing Loss Maternal Grandfather Prostate Cancer Maternal Grandfather Stroke Maternal Grandfather Arthritis Paternal Grandmother Hearing Loss Paternal Grandmother Cancer Paternal Grandfather PANCREATIC Hearing Loss Paternal Grandfather Diabetes Maternal Aunt Cancer Paternal Aunt OVARIAN No Known Problems Son No Known Problems Daughter Social History Tobacco Use Smoking status: Never Smokeless tobacco: Never Vaping Use Vaping Use: Never used Substance Use Topics Alcohol use: Yes Alcohol/week: 1.0 standard drink Types: 1 Cans of Beer (12oz) per week Comment: occasional Drug use: No Review of Systems Constitutional: Negative for fever. HENT: Positive for congestion, ear pain and sinus pain. Negative for ear discharge, nosebleeds and sore throat. Respiratory: Positive for cough. Negative for shortness of breath and wheezing. Musculoskeletal: Negative for neck pain. Skin: Negative for itching and rash. Objective Blood pressure 124/76, pulse 84, temperature 36.8 C (98.2 F), temperature source Tympanic, resp. rate 16, weight 79.2 kg (174 lb 9.6 oz), SpO2 99 %. Physical Exam Constitutional: General: He is not in acute distress. Appearance: He is not toxic-appearing or diaphoretic. HENT: Head: Normocephalic and atraumatic. Right Ear: Hearing, ear canal and external ear normal. A middle ear effusion is present. Left Ear: Hearing, ear canal and external ear normal. A middle ear effusion is present. Nose: Nose normal. Mouth/Throat: Pharynx: Uvula midline. No pharyngeal swelling, oropharyngeal exudate, posterior oropharyngeal erythema or uvula swelling. Eyes: General: Lids are normal. No scleral icterus. Right eye: No discharge. Left eye: No discharge. Conjunctiva/sclera: Conjunctivae normal. Pupils: Pupils are equal, round, and reactive to light. Neck: Trachea: Trachea normal. Cardiovascular: Rate and Rhythm: Normal rate and regular rhythm. Heart sounds: Normal heart sounds. Pulmonary: Effort: Pulmonary effort is normal. Breath sounds: Normal breath sounds. Musculoskeletal: Cervical back: Normal range of motion and neck supple. Lymphadenopathy: Cervical: No cervical adenopathy. Right cervical: No superficial cervical adenopathy. Left cervical: No superficial cervical adenopathy. Skin: Findings: No rash. Neurological: Mental Status: He is alert and oriented to person, place, and time. ASSESSMENT/PLAN: 1. Bacterial sinusitis - ICD9: 473.9, 041.9, ICD10: J32.9, B96.89 - Will begin treatment with as per antibiotic as written, see orders - Supportive care with plenty of fluids, rest, and analgesia prn. - Follow up in 3-5 days if symptoms persist or worsen. - DOXYCYCLINE MONOHYDRATE 100 MG TABLET - FLUTICASONE PROPIONATE 50 MCG/ACTUATION NASAL SPRAY,SUSPENSION Chauncey Santiago APRN.[employer]AMPLE [employer]ADER documented in this encounter [facility] 01-15-2022 History of Presen t illness Narrative CC: Patient presents with: Follow Up: Male pattern baldness HPI Malik Godoy is a 36 year old male who presents today for above. He had virtual visit with PCP in November. Had requested oral Minoxidil for male pattern baldness. He did not want topical treatment and had tried Propecia in the past but stopped due to side effects. He was started on low dose oral Minoxidil. Patient reports no noticeable amount of hair growth however he has only been taking for 6 weeks. He denies chest pain, palpitations, fast heart rate, SOB, edema, PND, orthopnea, dizziness, lightheadedness, feeling faint or syncope REVIEW OF SYSTEMS See HPI PAST MEDICAL HISTORY Diagnosis Date Hyperlipidemia LDL goal < 100 09/30/2010 Kidney stones 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 Migraine with aura, not intractable, without status migrainosus 07/17/2021 PAST SURGICAL HISTORY Procedure Laterality Date PAST SURGICAL HISTORY OF Right x3 achilles surgies for bone spur RPR 1ST INGUN HRNA AGE 5 YRS/> REDUCIBLE ALLERGIES Amoxicillin MEDICATIONS fexofenadine/pseudoephedrine (JYOTI-D 24 HOUR ORAL) Take by mouth. minoxidil (LONITEN) 2.5 mg tablet Take 1 tablet by mouth once daily. DAILY MULTIVITAMIN TAB Take one(1) tablet daily. FAMILY HISTORY Problem Relation Age of Onset No Known Problems Mother Hypertension Father No Known Problems Sister Arthritis Maternal Grandmother Hearing Loss Maternal Grandmother Hearing Loss Maternal Grandfather Prostate Cancer Maternal Grandfather Stroke Maternal Grandfather Arthritis Paternal Grandmother Hearing Loss Paternal Grandmother Cancer Paternal Grandfather PANCREATIC Hearing Loss Paternal Grandfather Diabetes Maternal Aunt Cancer Paternal Aunt OVARIAN No Known Problems Son No Known Problems Daughter Social History Tobacco Use Smoking status: Never Smokeless tobacco: Never Vaping Use Vaping Use: Never used Substance Use Topics Alcohol use: Yes Alcohol/week: 1.0 standard drink Types: 1 Cans of Beer (12oz) per week Comment: occasional Drug use: No PHYSICAL EXAM BP 132/88 Pulse 84 Resp 16 Wt 79.4 kg (175 lb) BMI 26.61 kg/m General Appearance: well appearing, in no acute distress, alert Lungs: Lungs clear to auscultation. No wheezing, rhonchi, rales. Heart: RRR without murmur, gallop, or rubs. No ectopy ASSESSMENT/PLAN: 1. Male pattern baldness - ICD9: 704.09, ICD10: L64.9 (primary diagnosis) No side effects from Minoxidil. EKG in office today normal sinus rhythm. Check CBC. Follow-up to be determined based on results. Needs refill soon, will defer to PCP for refills 2. Medication monitoring encounter - ICD9: V58.83, ICD10: Z51.81 As above - CBC + DIFF - ECG COMPLETE Prescription instructions reviewed with patient as applicable. Potential red flag symptoms discussed with the patient. Reviewed appropriate action plan to take if red flag symptoms occur. Patient agreeable to treatment plan. Kasandra Zendejas APRN.CNP documented in this encounter [facility] 11-27-2021 History of Presen t illness Narrative [facility] VISIT Malik Godoy's identity was confirmed. The limitations of telemedicine were reviewed, and verbal consent was obtained for this encounter. This encounter is not related to previous similar encounter within the past 7 days. No face to face visit is planned in the next day in connection to this encounter. This telemedicine encounter was accomplished via ZOOM. Patient presents with: Establish Care Hair Loss Malik was interested in trying a medication he read on the internet used for hair loss; oral minoxidil at a low dose. He's been losing hair at the top of his head at least 5 years. He was not interested in topical therapies. He recalled trying a prescription tablet in the past which he took only for a few months and may have had side effects. This was propecia prescribed in September of 2010. He has migraines which are mild and infrequent. ACTIVE PROBLEM LIST Hyperlipidemia Ldl Goal < 100 Low Hdl (Under 40) Migraine With Aura, Not Intractable, Without Status Migrainosus Male Pattern Baldness Social History Tobacco Use Smoking status: Never Smokeless tobacco: Never Vaping Use Vaping Use: Never used Substance Use Topics Alcohol use: Yes Alcohol/week: 1.0 standard drink Types: 1 Cans of Beer (12oz) per week Comment: occasional Drug use: No ALLERGIES Allergen Reactions Amoxicillin Rash Current Outpatient Medications Medication Sig DAILY MULTIVITAMIN TAB Take one(1) tablet daily. No current facility-administered medications for this visit. VIDEO; He appears well. He has male pattern hair loss. Scalp without visible rash or dermatitis. ASSESSMENT/PLAN: 1. Male pattern baldness - ICD9: 704.09, ICD10: L64.9 Shared Medical Decision Making was done: Medication: minoxidil oral tablet. We discussed this medication is for refractory hypertension. Benefits: Medication may help baldness. Risks: Possible side effects were discussed including hypotension, angina. Possible interactions: n/a. Approved use or off label use: Off label use, described in dermatology articles. Options: Approved medications like topical minoxidil, oral Propecia, others. Cost: not known. Duration: TBD. Patient's request for medication is as follows Requested Prescriptions Signed Prescriptions Disp Refills minoxidil (LONITEN) 2.5 mg tablet 30 tablet 1 Sig: Take 1 tablet by mouth once daily. He agreed to follow up in office in 6 weeks. CBC and EKG will need updated. Jermaine Nieves MD documented in this encounter [facility] 07-17-2021 Instructions Dewey Woodall APRN.ROLAN CANDELARIO - 07/17/2021 1:35 PM EDT Follow up with Dewey Woodall APRN.ROLAN CANDELARIO in 1 year Perform fasting lab work. Clinic to call with results or will send through [employer]. You can schedule an appointment for lab work at our front desk auxiliary. Please fast 12 hours prior to blood work. You may have water, medications and black coffee during that fasting time. Lab hours are from 7:30 - 5:30 pm M- and from 8:00 am -12:00pm Tuesday. Return to the clinic or seek care at [facility] for any worsening signs or symptoms Healthy Habits: Recommend regular physical activity, nutrition and healthy eating habits. Consume a variety of foods every day focusing on fruits, vegetables and lean meats). Eat foods low in fat, saturated fat and cholesterol. Eat a limited amount of salt and sodium. Drink adequate amounts of water and limit sugary drinks. Exercise portion control in meal selection. Establish a mindset of a wellness approach to health. Thank you for allowing me to provide your care today. I look forward to seeing you again and maintaining your health. Dewey Woodall APRN.ROLAN CANDELARIO documented in this encounter [facility] 07-17-2021 History of Presen t illness Narrative Chief Complaint Patient presents with: Physical HPI Malik Godoy is a 36 year old male who presents here today for a established physical exam. This is a new patient to me. Previous patient of Dr. Bernal. Dr. Bernal has since retired Past Medical History: Hemorrhoids, kidney stones, Migraines with Aura, Josse deformity of achilles Specialty Providers: Orthopedics: Dr. Gamble Presents to the [facility] as an established new provider exam. No recent ER visits or hospitalizations. Recently was seen by general surgery for thrombosed hemorrhoid. Had a evacuation of the hemorrhoid. Feeling well since that visit. Occasional mouth ulcers and migraines. Has a migraine about once or twice a year. Usually takes Excedrin which helps and relieves the migraine. Typically he will lie down in a dark room this also provides relief. Denies any acute concerns. No lightheadedness or dizziness. No chest pain, difficulty breathing or shortness of breath. No chronic pain or chronic muscle or joint pain. No history of chronic constipation or diarrhea. Pending third Achilles tendon surgery. Diagnosed with a Josse's deformity is an abnormality of the bone and soft tissues in the foot. An enlargement of the bony section of the heel (where the Achilles tendon is inserted) triggers this condition. Past medical history, appointments, medications, allergies reviewed 07/17/2021 Previous Medical History PAST MEDICAL HISTORY Diagnosis Date Kidney stones Previous Surgical History PAST SURGICAL HISTORY Procedure Laterality Date PAST SURGICAL HISTORY OF Right x3 achilles surgies for bone spur RPR 1ST INGUN HRNA AGE 5 YRS/> REDUCIBLE Family History FAMILY HISTORY Problem Relation Age of Onset No Known Problems Mother Hypertension Father No Known Problems Sister Arthritis Maternal Grandmother Hearing Loss Maternal Grandmother Hearing Loss Maternal Grandfather Prostate Cancer Maternal Grandfather Stroke Maternal Grandfather Arthritis Paternal Grandmother Hearing Loss Paternal Grandmother Cancer Paternal Grandfather PANCREATIC Hearing Loss Paternal Grandfather Diabetes Maternal Aunt Cancer Paternal Aunt OVARIAN No Known Problems Son No Known Problems Daughter Patient Allergies ALLERGIES Allergen Reactions Amoxicillin Rash Current Medications Current Outpatient Medications on File Prior to Visit Medication Sig DAILY MULTIVITAMIN TAB Take one(1) tablet daily. No current facility-administered medications on file prior to visit. Social History Social History Tobacco Use Smoking status: Never Smoker Smokeless tobacco: Never Used Vaping Use Vaping Use: Never used Substance Use Topics Alcohol use: Yes Alcohol/week: 1.0 standard drink Types: 1 Cans of Beer (12oz) per week Comment: occasional Drug use: No Review of Symptoms GENERAL: No unintentional weight loss, malaise or fevers. No night sweats HEENT: Negative for frequent or significant headaches No significant change in vision. No blurry vision, double vision, or vision loss. No nasal discharge or nose bleeds. No sore throat, difficulty swallowing, mouth lesions or hoarseness No hearing loss. No earaches, ear pain, or ear discharge. NECK: Negative for lumps, pain and significant neck swelling RESPIRATORY: Negative for cough or hemoptysis. No wheezing, dyspnea or shortness of breath CARDIOVASCULAR: Negative for chest pain, leg swelling, or palpitations GI: No nausea, vomiting, or diarrhea. No blood in stool : No dysuria, frequency, urgency. No hematuria. MUSCULOSKELETAL: Negative for generalized joint pain, swelling, back pain or muscle aches SKIN: Negative for lesions, rash, and itching HEMATOLOGY/LYMPHOLOGY: Negative for prolonged bleeding, bruising easily or swollen nodes EXAM: BP 122/84 Pulse 86 Resp 14 Ht 172.7 cm (5' 8 ) Wt 78.9 kg (174 lb) SpO2 98% BMI 26.46 kg/m General Appearance: Well appearing, alert, in no acute distress, well-hydrated, well nourished. Overweight Skin: Skin color, texture, turgor normal, no suspicious rashes or lesions. Head: Normocephalic, no masses, lesions Eyes: Anicteric sclera. Ears: External ears normal, canals clear, TM's clear with adequate light reflex. Nose/Sinuses: Nares normal, septum midline, mucosa normal, no drainage or sinus tenderness. Oropharynx: Lips, mucosa, and tongue normal, teeth and gums normal, oropharynx nonreddened. Neck: Supple, no adenopathy; thyroid symmetric, normal size, no bruits. Lymph Nodes: No cervical lymphadenopathy, No supraclavicular lymphadenopathy Lungs: Lungs clear to auscultation. No wheezing, rhonchi, rales. Heart: RRR without murmur, gallop, or rubs. No ectopy. Normal S1 and S2. Abdomen: Abdomen soft, non-tender. Bowel sounds normal. No masses, organomegaly. No epigastric tenderness. No upper quadrant abdominal tenderness. No lower quadrant abdominal tenderness. No rebound tenderness. No CVA tenderness Extremities: No deformities, edema, skin discoloration. Good capillary refill. MSK: FROM of upper and lower extremities. No joint swelling or redness. Peripheral Pulses: Normal - radial and carotid 2+ Psych: Attitude - Cooperative, easily engaged in conversation Appearance - Normal hygiene and grooming appropriate Affect - Euthymic (normal mood), Mental status: Alert, attentive. Speech is clear and fluent with good repetition, comprehension Coordination: No abnormal or extraneous movements. Gait/Stance: Posture is normal. Gait is steady with normal steps Health Maintenance List HEPATITIS C SCREENING Never done HIV SCREENING Never done DEPRESSION SCREENING due on 01/16/2019 LIPID SCREEN due on 2020 INFLUENZA(Season Ended) due on 12/03/2021 DTAP,TDAP,TD(4 - Td or Tdap) due on 09/06/2026 COVID-19 VACCINE Completed MENINGOCOCCAL CONJUGATE Aged Out Data reviewed Last 5 Encounter BP Readings: Date: BP: 07/08/2021 127/87 07/07/2021 124/80 04/08/2018 122/84 01/16/2018 110/70 01/14/2018 110/68 BMI Readings from Last 5 Encounters: 07/17/21 : 26.46 kg/m 07/08/21 : 26.46 kg/m 04/08/18 : 25.46 kg/m 01/16/18 : 25.10 kg/m 01/14/18 : 24.37 kg/m Last 5 Encounter Wt Readings: Date: Wt: 07/08/2021 78.9 kg (174 lb) 07/07/2021 78.2 kg (172 lb 6.4 oz) 04/08/2018 78.2 kg (172 lb 6.4 oz) 01/16/2018 77.1 kg (170 lb) 01/14/2018 74.8 kg (165 lb) Medication and allergy list reviewed, reconciled and updated 07/17/2021 ASSESSMENT/PLAN: 1. Well adult exam - ICD9: V70.0, ICD10: Z00.00 (primary diagnosis) Performed a complete age, appropriate history and physical, along with risk factor reduction and counseling on preventive services. -Complete fasting lab work -Recommend regular routine exercise and healthy diet Follow-up in 1 year 2. Migraine with aura, not intractable, without status migrainosus - ICD9: 346.00, ICD10: G43.109 Discussed migraine treatment and red flag signs and symptoms Currently stable and well controlled. Continue with [id number] medication management. Continue to monitor 3. Overweight (BMI 25.0-29.9) - ICD9: 278.02, ICD10: E66.3 - stable weight Recommend regular physical activity, nutrition and healthy eating habits. Consume a variety of foods every day focusing on fruits, vegetables and lean meats). Eat foods low in fat, saturated fat and cholesterol. Eat a limited amount of salt and sodium. Drink adequate amounts of water and limit sugary drinks. Exercise portion control in meal selection. Establish a mindset of a wellness approach to health. - LIPID PANEL BASIC - COMP METABOLIC PANEL 4. Screening for lipid disorders - ICD9: V77.91, ICD10: Z13.220 - LIPID PANEL BASIC - COMP METABOLIC PANEL 5. 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 Desires lead screening - LEAD BLOOD 6. Depression screening - ICD9: V79.0, ICD10: Z13.31 PHQ2 = 0 Dewey Woodall APRN.ROLAN CANDELARIO This note was completed with Little1 dictation software. Note was reviewed for accuracy. There may be minor misspellings or grammar miscues with Little[employer] Dictation. I spent a total of 35 minutes on the date of the service which included preparing to see the patient, [id number] patient care, completing clinical documentation, performing a medically appropriate examination, counseling and educating the patient/family/caregiver and ordering medications, tests, or procedures. [place] [id number] documented in this encounter [facility] 07-08-2021 Instructions Justyna Hayden PA-C - 07/08/2021 2:19 PM EDT Sitz bath: During a sitz bath, you soak the rectal area in warm water for 10 to 15 minutes two to three times daily. Sitz baths are available in most [facility]. It is also possible to use a bathtub and sit in 2 to 3 inches of warm water. Do not add soap, bubble bath, or other additives in the water. Sitz baths work by improving blood flow and relaxing the muscle around the anus, called the internal anal sphincter. Do this 2-3 times daily and after a bowel movement. Recommend high fiber diet. Avoid straining with bowel movements. documented in this encounter [facility] 07-08-2021 History of Presen t illness Narrative ROS: GENERAL:No weight loss, No malaise, No fevers HEENT:Negative for frequent or significant headaches, No changes in hearing or vision, no nose bleeds or other nasal problems CARDIOVASCULAR: Negative for chest pain, Negative for leg swelling, Negative for palpitaions RESPIRATORY:Negative for cough, Negative for wheezing , Negative for shortness of breath GASTROINTESTINAL: Negative for abdominal discomfort, Negative for blood in stools, Negative for black stools, Negative for change in bowel habits, Positive for: and Rectal bleeding or blood in stool GENITOURINARY: No history of dysuria, frequency or incontinence. ENDOCRINE:None MUSCULOSKELETAL: Negative for joint pain , Negative for swelling, Negative for back pain, Negative for muscle pain NEUROLOGIC:Negative for focal numbness Negative for weakness Negative for headache Negative for syncope Negative for dizziness HEMATOLOGIC/LYMPHATIC/IMMUNOLOG IC:Positive for: Bleeding tendancy Alexandra Robbins [facility] HISTORY AND PHYSICAL REFERRING PHYSICIAN: Regla Mina APRN.CNP CHIEF COMPLAINT: Thrombosed hemorrhoid HPI: Malik is a 36 year old male with a complaint of a thrombosed hemorrhoid. he has noticed anal pain and swelling for the past 5 days. he notes drainage from the thrombosed hemorrhoid. Malik denies a prior history of thrombosed hemorrhoids. he denies a history of constipation and straining. The patient was seen by his primary care physician and was referred for treatment. The patient is being seen by me today at the request of Regla Mcdermott APRN.CNP for my opinion and advice regarding thombosed hemorrhoids. SIGNIFICANT MEDICAL PROBLEMS: PAST MEDICAL HISTORY Diagnosis Date Kidney stones OPERATIONS: PAST SURGICAL HISTORY Procedure Laterality Date PAST SURGICAL HISTORY OF Right x3 achilles surgies for bone spur RPR 1ST INGUN HRNA AGE 5 YRS/> REDUCIBLE CURRENT MEDICATIONS: Current Outpatient Medications Medication Sig Dispense Refill DAILY MULTIVITAMIN TAB Take one(1) tablet daily. 0 No current facility-administered medications for this visit. ALLERGIES: Amoxicillin PERSONAL HISTORY: Social History Tobacco Use Smoking status: Never Smoker Smokeless tobacco: Never Used Vaping Use Vaping Use: Never used Substance Use Topics Alcohol use: Yes Comment: occasional Drug use: No FAMILY HISTORY: FAMILY HISTORY Problem Relation Age of Onset Arthritis Mother Arthritis Maternal Grandmother Hearing Loss Maternal Grandmother Hearing Loss Maternal Grandfather Prostate Cancer Maternal Grandfather Stroke Maternal Grandfather Arthritis Paternal Grandmother Hearing Loss Paternal Grandmother Cancer Paternal Grandfather PANCREATIC Hearing Loss Paternal Grandfather Diabetes Maternal Aunt Cancer Paternal Aunt OVARIAN REVIEW OF SYMPTOMS: negative except as noted above PHYSICAL EXAMINATION: General: The patient is 36 year old male, well nourished, well hydrated in no acute distress. The patient is oriented to time, place, and person. VITALS: Blood pressure 127/87, pulse 74, height 172.7 cm (5' 8 ), weight 78.9 kg (174 lb). Body mass index is 26.46 kg/m . Rectal exam: prolapsing thrombosed hemorrhoids at 3 o'clock position. Procedure to be performed: Incision and Evacuation of Thrombosed Hemorrhoid Sign In: A Moment of CARE was completed. Personnel directly involved with the procedure wore the appropriate PPE (Personal Protective Equipment). No special equipment needed. Patient/Surrogate Stated/Verified: PATIENT VERIFIED(optional for EMERGENT procedures): Patient name, Date of , Relevant allergies, and The intended procedure Time Out Communication: Intended patient and procedure match the source documents. Consent documented and matches the intended procedure. No correct side/site applicable for marking and visibility. No fire risk assessment and interventions applicable. No implant(s) inserted. Sign Out: SIGN OUT (optional for EMERGENT procedures): No specimen collected. Procedure: The thrombosed hemorrhoid was identified at 3 o'clock. Anesthesia was obtained with 2 cc's of Lidocaine and epinephrine. The area was prepped in the usual sterile fashion. There was already an opening in the hemorroid with thrombus partially exposed. A hemostat was used to removed the blood clot. The site was then irriagated with saline. A dressing was placed over the site. The patient tolerated the procedure well. He initially felt lightheaded, but this quickly resolved. Assessment IMPRESSION: STATUS POST INCISION AND EVACUATION OF THROMBOSED HEMORRHOID Malik is instructed to perform sitz baths twice a day and after each bowel movement. Keep stools soft and avoid straining if possible. Some bleeding from the incision site where the blood clot was removed is common. If bleeding presists, press on the area with a clean gauze or towel. If pain increases, a new thrombosed hemorrhoid may be present. Return immediately. Return if symptoms fail to improve. Diagnoses: (K64.5) Thrombosed hemorrhoids Justyna Hayden PA-C documented in this encounter [facility] Diagnosis Well adult exam- Primary Routine general medical examination at a health care facility Migraine with aura, not intractable, without status migrainosus Overweight (BMI 25.0-29.9) Overweight Screening for lipid disorders Screening for lead exposure Screening for chemical poisoning and other contamination Depression screening Screening for depression [facility] Diagnosis 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 [facility] Diagnosis 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 Medication monitoring encounter Encounter for therapeutic drug monitoring [facility] Diagnosis Bacterial sinusitis- Primary Unspecified sinusitis (chronic) [facility] Diagnosis Routine general medical examination at health care facility- Primary Routine general medical examination at a health care facility 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 Hyperlipidemia with target low density lipoprotein (LDL) cholesterol less than 100 mg/dL Need for vaccination Need for prophylactic vaccination and inoculation against unspecified single disease [facility] Diagnosis Need for vaccination- Primary Need for prophylactic vaccination and inoculation against unspecified single disease [facility] Diagnosis 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 [facility]ative[facility] Outpatient Procedure (Routine) - Closed Specialty Diagnoses / Procedures Referred By Dennys garcia [facility] Diagnoses Medication monitoring encounter Procedures ECG COMPLETE ECG ROUTINE ECG W/LEAST 12 LDS W/I&R Kasandra Zendejas APRN.CNP [address] [place] [address] [facility] [address] [place] [address] Referral ID Status Reason Start Date Expiration Date V isits Requested Visits Authorized [id number] Closed Auto-Generate d Referral 01/15/2022 04/03/2022 1 1 [facility] Summary Purpose Family History No Family History Records Found Advance Directives No Advanced Directives Records Found Additional Source Comments Source Comments (unrecognize d section and content) In the event this informatio n is protected by the Federal Confidentiality of Alcohol and Drug Abuse Patient Records regulations: The Federal rules restrict any use of the information to criminally investigate or prosecute any alcohol or drug abuse patient.[facility] the event this information is protected by the Federal Confidentiality of Alcohol and Drug Abuse Patient Records regulations: The Federal rules restrict any use of the information to criminally investigate or prosecute any alcohol or drug abuse patient.[facility] the event this information is protected by the Federal Confidentiality of Alcohol and Drug Abuse Patient Records regulations: The Federal rules restrict any use of the information to criminally investigate or prosecute any alcohol or drug abuse patient.[facility] the event this information is protected by the Federal Confidentiality of Alcohol and Drug Abuse Patient Records regulations: The Federal rules restrict any use of the information to criminally investigate or prosecute any alcohol or drug abuse patient.[facility] the event this information is protected by the Federal Confidentiality of Alcohol and Drug Abuse Patient Records regulations: The Federal rules restrict any use of the information to criminally investigate or prosecute any alcohol or drug abuse patient.[facility] the event this information is protected by the Federal Confidentiality of Alcohol and Drug Abuse Patient Records regulations: The Federal rules restrict any use of the information to criminally investigate or prosecute any alcohol or drug abuse patient.[facility] the event this information is protected by the Federal Confidentiality of Alcohol and Drug Abuse Patient Records regulations: The Federal rules restrict any use of the information to criminally investigate or prosecute any alcohol or drug abuse patient.[facility] the event this information is protected by the Federal Confidentiality of Alcohol and Drug Abuse Patient Records regulations: The Federal rules restrict any use of the information to criminally investigate or prosecute any alcohol or drug abuse patient.[facility] the event this information is protected by the Federal Confidentiality of Alcohol and Drug Abuse Patient Records regulations: The Federal rules restrict any use of the information to criminally investigate or prosecute any alcohol or drug abuse patient.[facility] Reason for Visit (unrecogniz ed section and content) Specialty Diagnoses / Procedures Referred By Dennys garcia Referred To Contact General Surgery Diagnoses Thrombosed hemorrhoids Procedures CONSULT TO GENERAL SURGERY OFFICE/OUTPATIENT [facility] 60-74 MINUTES Regla Mina APRN.CNP [address] [place] [address] Referral ID Status Reason Start Date Expiration Date V isits Requested Visits Authorized [id number] Closed PCP Requested Referral 07/07/2021 07/07/2022 1 1 Reason Comments Physical Reason Comments Establish Care Hair Loss Reason Comments Follow Up Male pattern baldnes s Reason Comments Ear Problem Pt reported intermit tent nasal congestion, cough bilateral ear pain rated 4. Reason Comments Imm/Inj Reason Onset Date Comments Refill Request 01/26/2023 Care Teams (unrecognized sec tion and content) [employer] Teacher Relationship Specialty Start Date End Date Dewey Woodall APRN.CNP, DNP [address], [place] [address] PCP - General Family Practice 07/07/21 Elementary [employer] Teacher Relationship Specialty Start Date End Date Dewey Woodall APRN.CNP, DNP [address], [place] [id number] PCP - General Family Practice 07/07/21 Elementary [employer] Teacher Relationship Specialty Start Date End Date Jermaine Nieves MD [address] [place], [place] [id number] PCP - General Internal Medicine 11/26/21 Elementary [employer] Teacher Relationship Specialty Start Date End Date Jermaine Nieves MD [address] [place], [place] [id number] PCP - General Internal Medicine 11/26/21 Elementary [employer] Teacher Relationship Specialty Start Date End Date Jermaine Nieves MD [address] [place], [place] [id number] PCP - General Internal [facility] 11/26/21 Elementary Ell Teacher Relationship Specialty Start Date End Date Jermaine Nieves MD [address] [place], [place] [id number] PCP - General Internal [facility] 11/26/21 Elementary Ell Teacher Relationship Specialty Start Date End Date Jermaine Nieves MD [address] [place], [place] [id number] PCP - General Internal [facility] 11/26/21 Elementary Ell Teacher Relationship Specialty Start Date End Date Jermaine Nieves MD [address] [place], [place] [id number] PCP - General Internal Medicine 11/26/21 (unrecognized sect ion and content) No Status Records Found INFORMATION SOURCE (unrecogn ized section and content) FOR RECORDS PERTAINING TO PATIENTS WHO ARE OR HAVE BEEN ENROLLED IN A CHEMICAL DEPENDENCY/SUBSTANCEABUSE PROGRAM, SOME INFORMATION MAY BE OMITTED. This clinical summary was aggregated from multiple sources. Caution should be exercised in using it in the provision of clinical care. This summary normalizes information from multiple sources, and as a consequence, information in this document may materially change the coding, format and clinical context of patient data. In addition, data may be omitted in some cases. CLINICAL DECISIONS SHOULD BE BASED ON THE PRIMARY CLINICAL RECORDS. [employer] [facility]. provides no warranty or guarantee of the accuracy or completeness of information in this document.
[2023-04-22 06:15] VITALS: BMI 25.0
[2023-04-22] MEDS: Lactated Ringers 1,000 ML 15 ML IV (06:43)
--- NOTE | 2023-04-22 07:35 | DCINST_ITS ---
Discharge Instructions Diet Discharge Diet: Light diet - advance as tolerated Activity Discharge Activity: May Not Drive Weight Bearing Status: No weight bearing (No weightbearing on left foot) Keep extremity elevated above heart level: Left Leg (Keep left foot elevated for at least 50 minutes of every hour) Dressing / Incision Call your doctor if your incision/area has: Continuous Slow Oozing and Sudden Increased Bleeding Call your doctor if you observe: Fever of 101 or Higher, Shortness of breath, Chest pain, Increased palpitations (irregular heartbeat), Calf discomfort and Uncontrolled pain Change Dressing in: do not change dressing Remove Dressing in: do not remove dressing Cleanse incision/area with: Keep Dressing Clean & Dry Follow Up Care Please Follow Up With: Vince Head DPM When: 1 week (next Tuesday) in office, sooner if needed Office number: [phone] Dr. Head's cell: [phone] Test Results: Test results from this visit will be discussed in further detail at your follow- up appointment, if applicable. Discharge Plan Admission Attending Provider: Vince Head Primary Care Provider: Jermaine Prince Discharge Orders/Prescriptions Prescriptions: New hydrocodone-acetaminophen 5-300 mg tablet 1 - 2 tab PO Q6H PRN (Reason: pain) 4 Days Qty: 15 0RF No Action multivitamin Tablet 1 tab PO DAILY minoxidil 2.5 mg tablet 2.5 mg PO DAILY Patient Comments: TAKE 1 TABLET BY MOUTH EVERY DAY Referrals / Follow Up: Jermaine Prince MD [Primary Care Provider] - Disposition Disposition (needs filled in before D/C Order can be placed): Home, Self Care
--- NOTE | 2023-04-22 07:36 | OP.PCM_ITS ---
Report of Operation Date of Procedure: 04/22/23 Pre-Operative Diagnosis: Plantar fasciitis with infracalcaneal spur left foot Post-Operative Diagnosis: Same Surgery/Procedure Performed:: Plantar fasciotomy with resection of infracalcaneal spur, left foot Surgeon: Vince Head oracle ebs consultant: Type of Anesthesia: Local and MAC Estimated Blood Loss (mL): 1mL Description of Procedure: Indications: 37 year old gentleman with chronic left heel pain, to the plantar heel consistent with plantar fasciitis. MRI obtained pre op consistent with plantar fasciitis. He has tried extensive nonsurgical care, but this continues cause pain, and affecting his daily activities. Because symptoms persist, he has elected to undergo the surgical procedures. The procedures were discussed with him in great detail, reviewed the possible benefits vs risks and potential complications. Typical post op recovery was reviewed with him. The goals and the expectations were reviewed with him in detail. The consent forms were reviewed with him in detail, and he freely signed them. No guarantees were given or implied. All of her questions were answered. Operative Procedure: The patient was brought back into the operating room. A time out was performed and the patient was properly identified and the surgical plan was confirmed. The patient received 900mg of IV Clindamycin for antibiotic prophylaxis. A well padded pneumatic tourniquet was applied around the left ankle. The patient received general per the anesthesiologist.? The patient was placed on the operating room table in the supine position, with good padding and offloading for all of the bony prominences. He was carefully secured to the operating room table with a safety belt around the patient's waist. A total of 20mL of 0.5% bupivacaine plain was given as a local nerve block around the surgical site after the overlying skin was cleansed with 70% Isopropyl alcohol. The left foot was scrubbed, prepped, draped in the usual aseptic fashion. A timeout was performed and the patient was properly identified and the surgical plan was confirmed. The left foot was elevated for 3 minutes and the ankle pneumatic tourniquet was inflated to 300mmHg. Plantar fasciotomy with resection of infracalcaneal spur.: A skin incision was made to the medial hindfoot at the level of the origin of the plantar fascia on the inferior calcaneus. Careful dissection was completed down through the subcutaneous tissue layer. A plane was created superiorly and inferiorly around the plantar fascia. There was significant thickening, tightness, and fibrosis of the plantar fascia consistent with chronic plantar fasciitis. The medial 50% of the plantar fascia was released via a plantar fasciotomy. The infracalcaneal spur was identified and was resected using a powered sagittal rasp, resection was confirmed using intraoperative fluoroscopy. The site was flushed out with copious amounts of normal saline solution. The skin was reapproximated using 3-0 Nylon. The pneumatic tourniquet was deflated at 18 minutes, there was immediate return of warmth and perfusion to the foot and to all toes on the foot with normal temperature present. CFT < 2 seconds to all toes. A dressing was applied which consisted of Betadine soaked adaptic, 4x4 gauze, Kerlix and steven bandage. All vital structures were properly identified and protected as necessary for this procedure. Also intraoperative fluoroscopy was used to pile driver operator helper in visualization of and confirm resection of infracalcaneal spur. The patient tolerated the above operative procedure well at the anesthesia well with no complication. The patient was transported to the recovery room with vital signs stable and in good condition. Post operative orders were placed. Post operative instructions were reviewed with him as well as with his who was present with him today. No weightbearing left foot, keep foot elevated for at least 50 minutes of every hour, keep dressing clean, dry and intact. Prescription for Vicodin 5/325mg was prescribed: 1-2 tabs PO q 6 hours PRN pain for pain control. He is going to follow up with me within 1 week or sooner if needed. Grafts/Implants Used: None Complications None
[2023-04-22] MEDS: Clindamycin 900 MG/50 ML BAG 75 MG IV (07:40)
--- NOTE | 2023-04-22 07:50 | RAD_ITS ---
STUDY: X-RAY - LEFT FOOT CLINICAL: Male, 37 years old. PAIN TECHNIQUE: 2 intraoperative spot films of the left foot. COMPARISON: None. FINDINGS: Limited images demonstrate successful intraoperative removal of a plantar calcaneal spur. Normal visualized subtalar, talonavicular, calcaneocuboid, and visualized tarsal articulations. RAD/Foot 2 Views IMPRESSION: Successful intraoperative removal of a plantar calcaneal spur. Electronically Signed: Ravindra Dugan MD at 8:50 EST ,
[2023-04-22] MEDS: Bupivacaine Mpf 0.5% 30 ML VIAL (07:55)
[2023-04-22 08:32] VITALS: BP 118/78; BP 128/87; PULSE 90; RESP 14; TEMP 32.2; O2SAT 96
[2023-04-22 08:40] VITALS: BP 118/78; BP 123/85; PULSE 79; RESP 14; O2SAT 96
[2023-04-22 08:45] VITALS: BP 118/78; BP 119/78; PULSE 80; RESP 16; O2SAT 98
[2023-04-22 09:00] VITALS: BP 118/78; BP 122/95; PULSE 73; RESP 16; O2SAT 100
[2023-04-22 09:10] VITALS: BP 118/78; BP 121/86; PULSE 70; RESP 16; TEMP 36.2; O2SAT 100
[2023-04-22 09:41] VITALS: BP 118/78
== END 2023-04-22 10:03 | disposition home or self-care (01) ==
LOC: SDC 06:04 → AC 06:06
PROVIDERS: PCP Internal Medicine; Referring Provider Podiatrist; Visit Provider Podiatrist
PROC: (CPT 28119; principal; 2023-04-22 07:15)
DX: M72.2 Plantar fascial fibromatosis (principal); G89.29 Other chronic pain; M79.672 Pain in left foot; Z87.19 Personal history of other diseases of the digestive system; Z86.79 Personal history of other diseases of the circulatory system
CPT/HCPCS: 28119; 01480; 36415; 73620; 76000; 80048; 85025; J7120; J2405